=== PATIENT | male | born 1960 | race Hispanic/Latino ===

== ENCOUNTER → 2017-11-14 | Outpatient (CLI) | payer MEDICAID | END | disposition home or self-care (01) | LOC: SHCH 11:24 | PROVIDERS: ATTEND Internal Medicine Cardiovascular Disease | DX: R06.02 Shortness of breath (principal) | CPT/HCPCS: 93306 ==

== ENCOUNTER → 2017-11-29 | Outpatient (CLI) | payer MEDICAID | END | disposition home or self-care (01) | LOC: SHCH 15:08 | PROVIDERS: ATTEND Internal Medicine Cardiovascular Disease | DX: I87.2 Venous insufficiency (chronic) (peripheral) (principal) | CPT/HCPCS: 93970 ==

== ENCOUNTER → 2017-12-25 | Outpatient (CLI) | payer MEDICAID | END | disposition home or self-care (01) | LOC: SHCH 08:41 | PROVIDERS: ATTEND Internal Medicine Cardiovascular Disease | DX: Z09 Encounter for follow-up examination after completed treatment for conditions other than malignant neoplasm (principal); Z98.890 Other specified postprocedural states | CPT/HCPCS: 93971 ==

== ENCOUNTER 2018-01-16 18:01 | Emergency (ER) | payer MEDICAID ==
[2018-01-16] MEDS ORDERED: IPRATROPIUM/ALBUTEROL SULFATE 3 ML SOLUTION IH ONE ×2 (19:27→21:06)
[2018-01-16 19:40] LABS: EOSINOPHILS % (AUTO) 3.4 % (0.0-8.0); HEMATOCRIT 48.5 % (42-54); LYMPHOCYTES % (AUTO) 23.8 % (21.0-51.0); MEAN CORPUSCULAR HEMOGLOBIN 29.1 pg (27.0-33.0); MEAN CORPUSCULAR HGB CONC 33.7 g/dL (32.0-36.0); MEAN CORPUSCULAR VOLUME 86.5 fL (79-99); MONOCYTES % (AUTO) 5.2 % (3.0-13.0); NEUTROPHILS % (AUTO) 66.6 % (40.0-77.0); PLATELET COUNT (AUTO) 190 K/uL (130-400); RED BLOOD CELL COUNT(AUTO) 5.61 MIL/uL (4.50-6.20); RED CELL DISTRIBUTION WIDTH 15.1 % (11.0-15.5); WHITE BLOOD COUNT (AUTO) 10.3 K/uL (4.8-10.8)
[2018-01-16 19:51] LABS: CREATININE 1.1 mg/dL (0.5-1.5); POTASSIUM 4.3 mmol/L (3.5-5.1)
[2018-01-16 19:56] LABS: ALBUMIN 3.1 g/dL (3.5-5.0); BILIRUBIN,TOTAL 0.8 mg/dL (0.2-1.0); TOTAL PROTEIN, SERUM 8.8 g/dL (6.0-8.3)
[2018-01-16 20:49] LABS: B-TYPE NATRIURETIC PEPTIDE 118 pg/mL (0-100)
[2018-01-16] MEDS ORDERED: PREDNISONE 20 MG TABLET ONE (20:57)
[2018-01-16] MEDS ORDERED: CEFTRIAXONE SODIUM 1 GM ONE (21:16)
[2018-01-16] MEDS ORDERED: LIDOCAINE HCL-MPF 1% 2ML VIAL ONE (21:18)
== END 2018-01-16 21:42 | disposition home or self-care (01) ==
LOC: EDH 18:01
DX: J44.1 Chronic obstructive pulmonary disease with (acute) exacerbation (principal); L03.116 Cellulitis of left lower limb; L03.115 Cellulitis of right lower limb; I10 Essential (primary) hypertension; M19.90 Unspecified osteoarthritis, unspecified site; E11.9 Type 2 diabetes mellitus without complications; Z98.890 Other specified postprocedural states; Z72.0 Tobacco use
CPT/HCPCS: 36415; 71045; 80053; 82550; 83880; 84484; 85025; 93005; 94640 ×2; 96372; 99285; J0696; J3490

== ENCOUNTER → 2018-09-06 | Outpatient (CLI) | payer MEDICAID | END | disposition home or self-care (01) | LOC: SHCH 12:22 | PROVIDERS: ATTEND Internal Medicine Cardiovascular Disease | DX: I87.2 Venous insufficiency (chronic) (peripheral) (principal) | CPT/HCPCS: 93970 ==

== ENCOUNTER 2020-02-12 12:50 | Observation (INO) | payer MEDICAID ==
[~2020-02-12] VITALS: Ht 177.8 cm; Wt 197.7 kg
[2020-02-12] MEDS ORDERED: ONDANSETRON HCL 4 MG/2 ML VIAL ONE (14:01)
[2020-02-12] MEDS ORDERED: HYDROMORPHONE 1 MG/1 ML AMP ONE (14:01)
[2020-02-12 14:26] LABS: BASOPHILS % (AUTO) 0.5 % (0.0-5.0); EOSINOPHILS % (AUTO) 2.3 % (0.0-8.0); HEMATOCRIT 48.1 % (42-54); MEAN CORPUSCULAR HEMOGLOBIN 28.9 pg (27.0-33.0); MEAN CORPUSCULAR HGB CONC 32.8 g/dL (32.0-36.0); MEAN CORPUSCULAR VOLUME 88.1 fL (79-99); MONOCYTES % (AUTO) 5.7 % (3.0-13.0); NEUTROPHILS % (AUTO) 73.9 % (40.0-77.0); PLATELET COUNT (AUTO) 183 K/uL (130-400); RED BLOOD CELL COUNT(AUTO) 5.46 MIL/uL (4.50-6.20); RED CELL DISTRIBUTION WIDTH 13.3 % (11.0-15.5); WHITE BLOOD COUNT (AUTO) 8.4 K/uL (4.8-10.8)
[2020-02-12 14:33] LABS: CREATININE 1.2 mg/dL (0.5-1.5); POTASSIUM 4.6 mmol/L (3.5-5.1)
[2020-02-12 14:34] LABS: INR 0.97 (0.85-1.15); PARTIAL THROMBOPLASTIN TIME 27.8 SEC (26.3-35.5); PROTHROMBIN TIME 10.5 SEC (9.6-11.6)
[2020-02-12 14:37] LABS: BILIRUBIN,TOTAL 1.2 mg/dL (0.2-1.0); TOTAL PROTEIN, SERUM 7.7 g/dL (6.0-8.3)
[2020-02-12 14:55] LABS: B-TYPE NATRIURETIC PEPTIDE 84 pg/mL (0-100)
[2020-02-12] MEDS ORDERED: CEFTRIAXONE SODIUM 1 GM ONE (18:06)
[2020-02-12] MEDS ORDERED: AZITHROMYCIN 250 MG TABLET PO ONE (18:07)
[2020-02-12] MEDS ORDERED: SODIUM CHLORIDE 0.9% 100 ML IV ONE (18:08)
[2020-02-12 19:36] LABS: CRP QUANTITATIVE 36.1 mg/L (0.00-9.0)
[2020-02-12] MEDS ORDERED: KETOROLAC TROMETHAMINE 30MG/ML ONE (21:35)
--- NOTE | 2020-02-12 22:30 | NUR ---
REPORT FROM ER by VIANCA OLGUIN.
[2020-02-12 22:57] VITALS: BP 122/65
--- NOTE | 2020-02-12 23:00 | NUR ---
PT ARRIVED TO UNIT. NO DISTRESS NOTED. PT ABLE TO AMBULATE FROM STRETCHER TO CHAIR. SOB. USES HOME O2. STATED AT HOME HE NOTICED HE WAS HAVING INCREASED GBW AND SOB EVEN WITH O2. PT HAS MEDICATION LIST. REQUESTING XANAX TO SLEEP
[2020-02-13] MEDS ORDERED: FLUT1BLS3 IH (02:10)
[2020-02-13] MEDS ORDERED: FURO40TA5 PO (02:10)
[2020-02-13] MEDS ORDERED: CARV25TA77 PO (02:10)
[2020-02-13] MEDS ORDERED: ROSU10TA28 PO (02:10)
[2020-02-13] MEDS ORDERED: GABA800T9 PO (02:10)
[2020-02-13] MEDS ORDERED: POTA-79 PO (02:10)
[2020-02-13] MEDS ORDERED: LISI10TA7 PO (02:10)
[2020-02-13] MEDS ORDERED: PROM118S5 PO (02:10)
[2020-02-13] MEDS ORDERED: DOCU-116 PO (02:10)
[2020-02-13] MEDS ORDERED: LEVO50 PO (02:10)
[2020-02-13] MEDS ORDERED: ALPR2TAB2 PO (02:10)
[2020-02-13] MEDS ORDERED: ERGO2000 PO (02:10)
[2020-02-13] MEDS ORDERED: HYDR-4381 PO (02:10)
[2020-02-13] MEDS ORDERED: LISI-613 PO (02:12)
[2020-02-13] MEDS ORDERED: PRED5TAB PO (02:12)
[2020-02-13] MEDS ORDERED: FOLI0.8T PO (02:12)
--- NOTE | 2020-02-13 02:30 | NUR ---
PT IS COVID NEGATIVE. TRANSFERRING CARE TO MED SURG FLOOR.ROOM 301. PT AWARE. NO DISTRESS NOTED. REPORT GIVEN TO RICK OLGUIN.
[2020-02-13] MEDS ORDERED: GUAIFENESIN-DM 200/20 MG 10 ML PO PRN (03:30)
[2020-02-13] MEDS ORDERED: KETOROLAC TROMETHAMINE 30MG/ML ONE (03:31)
[2020-02-13] MEDS ORDERED: ALPRAZOLAM 1 MG TAB ONE (03:45)
[2020-02-13 04:28] VITALS: BP 129/74
[2020-02-13] MEDS ORDERED: LEVOTHYROXINE 50 MCG TABLET ONE (05:23)
[2020-02-13] MEDS: LEVOTHYROXINE 50 MCG TABLET PO SCH (05:50)
[2020-02-13] MEDS ORDERED: HYDROCODONE/ACETAMINOPHEN 10/325 MG TAB PO PRN (06:45)
[2020-02-13 07:30] VITALS: BP 113/65
[2020-02-13] MEDS: ERGOCALCIFEROL 25 MCG PO SCH (09:00)
[2020-02-13] MEDS: TRELEGY ELLIPTA IH SCH (09:00)
[2020-02-13] MEDS: GABAPENTIN 100 MG CAPSULE PO SCH (09:39)
[2020-02-13] MEDS: FOLIC ACID 1 MG TABLET PO SCH ×2 (09:40→21:52)
[2020-02-13] MEDS: ALPRAZOLAM 1 MG TAB PO SCH ×2 (09:40→21:52)
[2020-02-13] MEDS: DOCUSATE SODIUM 100 MG CAP PO SCH ×2 (09:41→21:52)
[2020-02-13] MEDS: ATORVASTATIN CALCIUM 20 MG TABLET PO SCH (09:41)
[2020-02-13] MEDS: PREDNISONE 5 MG TABLET PO SCH (09:41)
[2020-02-13] MEDS: POTASSIUM CHLORIDE 20 MEQ ERTAB PO SCH (09:41)
[2020-02-13] MEDS: FUROSEMIDE 40 MG TABLET PO SCH (09:41)
[2020-02-13] MEDS: CARVEDILOL 25 MG TABLET PO SCH (09:42)
[2020-02-13] MEDS: LISINOPRIL 20 MG TABLET PO SCH (09:43)
[2020-02-13 11:00] VITALS: BP 100/34
--- NOTE | 2020-02-13 14:29 | NUR ---
DCP CM met with pt discussed dc plans. Pt is semi-independent prior to admission, lives athome with spouse. Pt has a provider 5hrs/day, electric scooter, O2, cpap, SCD machine, nebulizer machine, cpap. Denies any equipments/services. Feels safe to go back home, still drives, spouse able to assist with transportation and needs as necessary, uses [facility] for meds. DC plan to home once stable. CM to cont to follow up. Addendum: 02/13/20 at 1431 by RADHA VINES LVN CM Amended: Links added.
[2020-02-13] MEDS ORDERED: IOHEXOL 350 MG/ML 100ML INFUS..BTL IV ONE (15:04)
[2020-02-13 16:00] VITALS: BP 111/50
[2020-02-13] MEDS ORDERED: AZITHROMYCIN 250 MG TABLET PO SCH (18:00)
[2020-02-13] MEDS ORDERED: CEFTRIAXONE SODIUM 1 GM IVP SCH (18:00)
[2020-02-13 20:00] VITALS: BP 98/53
[2020-02-14 00:02] VITALS: BP 101/54
[2020-02-14] MEDS ORDERED: CEFTRIAXONE SODIUM 1 GM IVP SCH (01:45)
[2020-02-14 04:02] VITALS: BP 90/44
--- NOTE | 2020-02-14 05:28 | NUR ---
0130: I paged KIRSTY Rodriguez via answering service to let her know about the Blood Culture gram+ cocci, received call back within a few minutes. Informed LARD BLEACHER of above, orders received for Rocephin to be increased to 2 gms every 12 hours, and for the blood cultures to be draw, a set of two. Patient made aware of above, informed him would administer medication as soon as available by pharmacy, verbalized understanding. 0437: I received results from lab that the blood culture both aerobic and anaerobic are both gram + cocci. I paged LARD BLEACHERMartín Rodriguez to let informed her of above, also to let her know patient's b/p going low 90/40. 0506: I called answering service again to repage KIRSTY Rodriguez. 0528: I called answering service again, they passed me right through to KIRSTY Rodriguez. Informed her of above results, informed BC had been drawn, and that Rocephin 2 gm dose had been administered already. Also made her aware, of patient' b/p dropping 90/40. Orders received for NS at 75 ml/hr, reconsult Dr. Underwood and Midodrine 5 mg po every 8 hours as needed for SBP lowered then 90. Patient made aware of new orders, verbalized understanding.
[2020-02-14] MEDS ORDERED: SODIUM CHLORIDE 0.9% 1000ML 1,000 ML IV SCH (06:00)
[2020-02-14] MEDS ORDERED: SODIUM CHLORIDE 0.9% 1000ML 1,000 ML IV ONE (06:02)
[2020-02-14] MEDS: LEVOTHYROXINE 50 MCG TABLET PO SCH (06:30)
[2020-02-14] MEDS ORDERED: MIDODRINE HCL 5 MG TABLET PO PRN (08:00)
[2020-02-14] MEDS ORDERED: CEFTRIAXONE SODIUM 2 GM VIAL IVP SCH (09:00)
[2020-02-14] MEDS: CARVEDILOL 25 MG TABLET PO SCH (09:00)
[2020-02-14] MEDS: LISINOPRIL 20 MG TABLET PO SCH (09:00)
[2020-02-14] MEDS: GABAPENTIN 100 MG CAPSULE PO SCH (09:00)
[2020-02-14] MEDS: TRELEGY ELLIPTA IH SCH (09:00)
[2020-02-14] MEDS: ERGOCALCIFEROL 25 MCG PO SCH (09:00)
[2020-02-14] MEDS ORDERED: MIDODRINE HCL 5 MG TABLET PO SCH (09:00)
[2020-02-14] MEDS ORDERED: ENOXAPARIN SODIUM 40 MG/0.4 ML SYRINGE SQ SCH (09:00)
[2020-02-14] MEDS ORDERED: PANTOPRAZOLE SODIUM 40 MG TABLET.DR PO SCH (09:00)
[2020-02-14 09:08] VITALS: BP 104/52
[2020-02-14] MEDS: ALPRAZOLAM 1 MG TAB PO SCH (09:20)
[2020-02-14] MEDS: PREDNISONE 5 MG TABLET PO SCH (09:20)
[2020-02-14] MEDS: FOLIC ACID 1 MG TABLET PO SCH (09:20)
[2020-02-14] MEDS: ATORVASTATIN CALCIUM 20 MG TABLET PO SCH (09:21)
[2020-02-14] MEDS: FUROSEMIDE 40 MG TABLET PO SCH (09:21)
[2020-02-14] MEDS: DOCUSATE SODIUM 100 MG CAP PO SCH (09:22)
[2020-02-14] MEDS: POTASSIUM CHLORIDE 20 MEQ ERTAB PO SCH (09:22)
[2020-02-14] MEDS ORDERED: AMOX-426 PO (12:51)
[2020-02-14 13:32] VITALS: BP 101/49
== END 2020-02-14 14:20 | disposition home or self-care (01) ==
LOC: EDH 12:50 → EDHIP 18:33 → 2DH 22:54 → 3AH 02-13 02:59
PROVIDERS: ADMIT Internal Medicine Critical Care Medicine; ATTEND Internal Medicine Critical Care Medicine
DX: J44.9 Chronic obstructive pulmonary disease, unspecified (principal); E11.65 Type 2 diabetes mellitus with hyperglycemia; I10 Essential (primary) hypertension; M19.90 Unspecified osteoarthritis, unspecified site; R79.89 Other specified abnormal findings of blood chemistry; E66.2 Morbid (severe) obesity with alveolar hypoventilation; G47.33 Obstructive sleep apnea (adult) (pediatric); Z20.828 Contact with and (suspected) exposure to other viral communicable diseases; Z87.891 Personal history of nicotine dependence; Z99.89 Dependence on other enabling machines and devices; Z79.84 Long term (current) use of oral hypoglycemic drugs; Z79.899 Other long term (current) drug therapy; Z68.44 Body mass index [BMI] 60.0-69.9, adult
CPT/HCPCS: 36415 ×2; 71045; 71275; 74176; 80053; 82550; 82728; 82948; 83605; 83880; 84145; 84484; 85025; 85378; 85610; 85730; 86140; 87040 ×3; 87077; 87186; 87633; 87635; 93005; 93970; 96361; 96372; 96374; 96376; 99285; G0378 ×44; J0696 ×4; J1170; J1650; J1885 ×2; J2405; J7030; J7512 ×2; Q9967

== ENCOUNTER 2020-03-04 09:42 | Observation (INO) | payer MEDICAID ==
[~2020-03-04] VITALS: Ht 177.8 cm; Wt 192.8 kg
[~2020-03-04 09:42] MED LIST: ALPR2TAB2 PO; AMOX-426 PO; CARV25TA77 PO; DOCU-116 PO; ERGO2000 PO; FLUT1BLS3 IH; FOLI0.8T PO; FURO40TA5 PO; GABA800T9 PO; HYDR-4381 PO; LEVO50 PO; LISI-613 PO; POTA-79 PO; PRED5TAB PO; PROM118S5 PO; ROSU10TA28 PO
[2020-03-04 10:18] LABS: BASOPHILS % (AUTO) 0.2 % (0.0-5.0); EOSINOPHILS % (AUTO) 0.9 % (0.0-8.0); HEMATOCRIT 43.4 % (42-54); LYMPHOCYTES % (AUTO) 11.8 % (21.0-51.0); MEAN CORPUSCULAR HEMOGLOBIN 28.4 pg (27.0-33.0); MEAN CORPUSCULAR HGB CONC 32.7 g/dL (32.0-36.0); MEAN CORPUSCULAR VOLUME 86.8 fL (79-99); MONOCYTES % (AUTO) 5.5 % (3.0-13.0); NEUTROPHILS % (AUTO) 81.2 % (40.0-77.0); PLATELET COUNT (AUTO) 171 K/uL (130-400); RED CELL DISTRIBUTION WIDTH 13.2 % (11.0-15.5); WHITE BLOOD COUNT (AUTO) 10.3 K/uL (4.8-10.8)
[2020-03-04 10:36] LABS: PARTIAL THROMBOPLASTIN TIME 27.6 SEC (26.3-35.5); PROTHROMBIN TIME 10.8 SEC (9.6-11.6)
[2020-03-04 10:37] LABS: CREATININE 1.4 mg/dL (0.5-1.5); POTASSIUM 4.4 mmol/L (3.5-5.1)
[2020-03-04 10:44] LABS: ALBUMIN 2.8 g/dL (3.5-5.0); BILIRUBIN,TOTAL 1.1 mg/dL (0.2-1.0); TOTAL PROTEIN, SERUM 6.8 g/dL (6.0-8.3)
[2020-03-04 11:06] LABS: B-TYPE NATRIURETIC PEPTIDE 109 pg/mL (0-100)
[2020-03-04] MEDS ORDERED: SODIUM CHLORIDE 0.9% 1000ML 1,000 ML IV ONE (12:37)
[2020-03-04] MEDS ORDERED: ZOSYN 3.375GM+NS 50ML 50 ML IV ONE (12:37)
[2020-03-04] MEDS: SODIUM CHLORIDE 0.9% 1000ML 1,000 ML IV SCH ×2 (12:54→22:54)
[2020-03-04] MEDS ORDERED: VANCOMYCIN PROTOCOL PER PHARMACY IV PRN (13:00)
[2020-03-04] MEDS ORDERED: DiphenhydrAMINE HCL 50 MG/ML VIAL IV PRN (13:00)
[2020-03-04] MEDS ORDERED: ALBUTEROL SULFATE 0.083% 2.5 MG/3 ML INH IH PRN (13:00)
[2020-03-04] MEDS ORDERED: ACETAMINOPHEN 325 MG TAB PO PRN ×2 (13:00)
[2020-03-04] MEDS ORDERED: ONDANSETRON HCL 4 MG/2 ML VIAL IV PRN (13:00)
[2020-03-04] MEDS ORDERED: MAG HYDROX/AL HYDROX/SIMETH ES 30 ML SUSP UDCUP PO PRN (13:00)
[2020-03-04] MEDS ORDERED: LACTULOSE 20 GM/30 ML UDCUP PO PRN (13:00)
[2020-03-04] MEDS: ZOSYN 3.375GM+NS 50ML 50 ML IV SCH ×2 (13:00→21:40)
[2020-03-04] MEDS ORDERED: MORPHINE SULFATE 2 MG/ML 1ML SYG IV PRN (13:00)
[2020-03-04] MEDS ORDERED: VANCOMYCIN 2 GM in SODIUM CHLORIDE 0.9% 500ML 500 ML IV SCH (13:00)
[2020-03-04] MEDS ORDERED: ACETAMINOPHEN-CODEINE 300/30MG TAB PO PRN (13:00)
[2020-03-04] MEDS ORDERED: COMPOUND IV REFRIGERATED 1 EACH IVSOLN MISC PRN (13:30)
[2020-03-04] MEDS ORDERED: HYDRALAZINE HCL 20 MG/ML VIAL IV PRN (14:15)
[2020-03-04] MEDS ORDERED: LORAZEPAM 2 MG TABLET PO PRN (14:15)
[2020-03-04 17:13] VITALS: BP 122/60
[2020-03-04] MEDS: BUDESONIDE 0.5 MG/2 ML INH IH SCH (18:37)
[2020-03-04 20:00] VITALS: BP 114/54
[2020-03-04] MEDS ORDERED: FAMOTIDINE 20MG TAB 20 MG TAB PO SCH (21:00)
[2020-03-04] MEDS ORDERED: ATORVASTATIN CALCIUM 20 MG TABLET PO SCH (21:00)
[2020-03-04] MEDS: VANCOMYCIN 1.25 GM in SODIUM CHLORIDE 0.9% 250 ML IV SCH (21:41)
[2020-03-04] MEDS: FOLIC ACID 1 MG TABLET PO SCH (21:41)
[2020-03-04] MEDS: DOCUSATE SODIUM 100 MG CAP PO SCH (21:42)
[2020-03-04] MEDS: GABAPENTIN 300 MG CAPSULE PO SCH (21:42)
[2020-03-04 22:23] LABS: APPEARANCE,URINE Clear (CLEAR); BILIRUBIN,URINE Negative (NEGATIVE); COLOR,URINE Dark Yellow (YELLOW); GLUCOSE, URINE (UA) Negative (NEGATIVE); KETONES,URINE 15 mg/dL (NEGATIVE); LEUKOCYTE ESTERASE ,URINE Negative (NEGATIVE); NITRATE,URINE Negative (NEGATIVE); OCCULT BLOOD,URINE Negative (NEGATIVE); PROTEIN,URINE Negative (NEGATIVE)
[2020-03-04 22:43] LABS: BACTERIA,URINE None Seen /HPF (None Seen); RBC,URINE None Seen /HPF (0-1); SQUAMOUS EPITHELIAL CELL,UR Rare /HPF (0-2); WBC,URINE None Seen /HPF (0-1)
[2020-03-04 23:38] VITALS: BP 128/63
[2020-03-05 04:00] VITALS: BP 104/48
[2020-03-05] MEDS: ZOSYN 3.375GM+NS 50ML 50 ML IV SCH (04:37)
[2020-03-05 04:41] LABS: BASOPHILS % (AUTO) 0.2 % (0.0-5.0); EOSINOPHILS % (AUTO) 0.1 % (0.0-8.0); HEMATOCRIT 45.5 % (42-54); LYMPHOCYTES % (AUTO) 9.6 % (21.0-51.0); MEAN CORPUSCULAR HEMOGLOBIN 28.3 pg (27.0-33.0); MEAN CORPUSCULAR HGB CONC 32.1 g/dL (32.0-36.0); MEAN CORPUSCULAR VOLUME 88.3 fL (79-99); MONOCYTES % (AUTO) 5.8 % (3.0-13.0); NEUTROPHILS % (AUTO) 83.8 % (40.0-77.0); PLATELET COUNT (AUTO) 193 K/uL (130-400); RED BLOOD CELL COUNT(AUTO) 5.15 MIL/uL (4.50-6.20); RED CELL DISTRIBUTION WIDTH 12.9 % (11.0-15.5); WHITE BLOOD COUNT (AUTO) 10.2 K/uL (4.8-10.8)
[2020-03-05 04:54] LABS: CREATININE 1.7 mg/dL (0.5-1.5); POTASSIUM 5.1 mmol/L (3.5-5.1)
[2020-03-05] MEDS: VANCOMYCIN 1.25 GM in SODIUM CHLORIDE 0.9% 250 ML IV SCH (06:03)
[2020-03-05] MEDS: BUDESONIDE 0.5 MG/2 ML INH IH SCH (07:28)
[2020-03-05] MEDS ORDERED: LEVOTHYROXINE 50 MCG TABLET PO SCH (07:30)
[2020-03-05 08:16] VITALS: BP 117/52
[2020-03-05] MEDS: DOCUSATE SODIUM 100 MG CAP PO SCH (08:21)
[2020-03-05] MEDS: FOLIC ACID 1 MG TABLET PO SCH (08:22)
[2020-03-05] MEDS: GABAPENTIN 300 MG CAPSULE PO SCH (08:22)
[2020-03-05] MEDS ORDERED: ENOXAPARIN SODIUM 40 MG/0.4 ML SYRINGE SQ SCH (09:00)
[2020-03-05] MEDS ORDERED: ERGOCALCIFEROL 25 MCG PO SCH (09:00)
[2020-03-05] MEDS ORDERED: ALPRAZOLAM 1 MG TAB PO PRN (10:45)
--- NOTE | 2020-03-05 11:15 | NUR ---
BENCHMARK KIRSTY PHIPPS FOR DR. OSCAR HERNANDEZ IN TO SEE PATIENT. ORDERS HAVE BEEN PLACED FOR DISCHARGE. NEW PRESCRIPTIONS WERE LEFT IN THE CHART. PATIENT HAS BEEN NOTIFIED AND IN IN AGREEMENT.
--- NOTE | 2020-03-05 11:47 | NUR ---
INSTRUCTIONS DISCHARGE INSTRUCTIONS GIVEN TO PATIENT USING TEACH BACK. IVS REMOVED WITH TIP INTACT. DIRECT PRESSURE APPLIED UNTIL BLEEDING CONTROLLED THEN SITE COVERED WITH GAUZE AND SECURED WITH BAND-AIDS. NEW PRESCRIPTIONS PLACED IN PACKET ALONG WITH ALL PRINTED INFORMATION AND MD INSTRUCTIONS. F/U APPOINTMENT MADE WITH PRIMARY MD. NO QUESTIONS OR CONCERNS VOICED. PENDING RIDE HOME.
--- NOTE | 2020-03-05 14:35 | NUR ---
NOT SEEN BY CM PRIOR TO DISCHARGE. Addendum: 03/05/20 at 1436 by RANDAL ROME RN CM Amended: Links added.
== END 2020-03-05 12:42 | disposition home or self-care (01) ==
LOC: EDH 09:42 → EDHIP 09:43 → 3BH 16:20
PROVIDERS: ADMIT Internal Medicine; ATTEND Internal Medicine
DX: N49.2 Inflammatory disorders of scrotum (principal); I10 Essential (primary) hypertension; J44.9 Chronic obstructive pulmonary disease, unspecified; J96.91 Respiratory failure, unspecified with hypoxia; E66.2 Morbid (severe) obesity with alveolar hypoventilation; F41.9 Anxiety disorder, unspecified; E78.5 Hyperlipidemia, unspecified; E11.9 Type 2 diabetes mellitus without complications; Z79.899 Other long term (current) drug therapy; Z68.44 Body mass index [BMI] 60.0-69.9, adult
CPT/HCPCS: 36415 ×2; 71045; 72192; 76870; 80048; 80053; 81001; 82550; 82948 ×3; 83605; 83880; 84484; 85025 ×2; 85610; 85730; 87040 ×2; 93005; 94640 ×2; 94664; 96365; 96366 ×2; 96368; 96372; 96375; 99285; G0378 ×16; J1200; J1650; J2543 ×3; J3370 ×2; J7030; J7040; J7050

== ENCOUNTER → 2021-02-26 | Outpatient (CLI) | payer MEDICAID ==
[~2021-02-26] MED LIST changes: -FOLI0.8T PO; +FOLI0.8T3 PO; -LISI-613 PO; +LISI20TA24 PO
== END | disposition home or self-care (01) ==
LOC: RAH 14:39
PROVIDERS: ATTEND Family Medicine
DX: M17.12 Unilateral primary osteoarthritis, left knee (principal); M23.8X2 Other internal derangements of left knee; M23.8X1 Other internal derangements of right knee
CPT/HCPCS: 73562; 93925